=== PATIENT | male | born 1965 | race Caucasian/White ===

== ENCOUNTER 2020-07-13 10:14 | Outpatient (CLI) | payer OTHER, SELFPAY | END 2020-07-13 10:15 | disposition home or self-care (01) | LOC: ANHSURGERY 10:16 | PROVIDERS: PCP Family Medicine; Visit Provider Surgery | DX: Z01.812 Encounter for preprocedural laboratory examination (principal); K40.90 Unilateral inguinal hernia, without obstruction or gangrene, not specified as recurrent | CPT/HCPCS: 36415; 86850; 86900; 86901 ==

== ENCOUNTER 2020-07-22 01:09 | Outpatient (CLI) | payer OTHER, SELFPAY ==
[2020-07-23 14:16] LABS: SARS-CoV-2 RNA PCR Negative
== END 2020-07-22 01:10 | disposition home or self-care (01) ==
LOC: ANHCOVIDDT 01:10
PROVIDERS: PCP Family Medicine; Visit Provider Surgery
DX: Z01.818 Encounter for other preprocedural examination (principal); Z20.828 Contact with and (suspected) exposure to other viral communicable diseases
CPT/HCPCS: 87635; C9803; U0003

== ENCOUNTER 2020-07-25 00:47 | Day surgery (SDC) | payer OTHER, SELFPAY ==
[2020-07-12 15:18] VITALS: BMI 23.9
[2020-07-25] VITALS (8 sets, daily range): BP systolic 144–164; BP diastolic 78–97; PULSE 54–89; RESP 12–20; TEMP 36.5–36.8; O2SAT 94–100
--- NOTE | 2020-07-25 08:34 | P.PNAN_ITS ---
Anes - Initial Pre Proc Eval Procedure: Operation Date: 07/25/20 13:30 Proposed Procedures p Laparoscopic Left Inguinal Hernia Repair With Mesh, Davinci Assisted - Patrick Ramirez DO Date/Time: 07/25/20 08:34 Surgeon: Patrick Ramirez DO Pre Op Diagnosis: Left Inguinal Hernia Patient Data Age: 55 Gender: M Height: 1.83 m Weight: 80 kg Allergies Allergy/AdvReac Type Severity Reaction Status Date / Time azithromycin Allergy Severe irritable Verified 07/25/20 11:39 Penicillins Allergy Severe Skin Verified 07/25/20 11:39 Reaction Home Medications Medication Instructions Recorded Confirmed Type cetirizine 10 mg tablet 10 mg PO DAILY 06/13/20 07/25/20 History fluticasone propionate 50 1 spray INTRANASAL DAILY 06/13/20 07/25/20 History mcg/actuation nasal spray,suspension omeprazole 20 mg capsule,delayed 20 mg PO DAILY 06/13/20 07/25/20 History release sildenafil 100 mg tablet 100 mg PO DAILY PRN #10 tablet 07/07/20 07/12/20 Rx Patient hx anesthesia problems: none Family hx anesthesia problems: none PMFSH Past Medical History Medical History Gastro-esophageal reflux disease without esophagitis Surgical History Surgical History H/O ventral hernia repair 2011: Incarcerated ventral hernia repair with mesh, Dr. Hopper. 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 Gender identity (if verbalized by the patient): Male Spiritual care concerns: No Anes - Eval Final PreProcedure Day of Procedure 07/25/20 08:34 Patient weight: normal Heart: regular rate and rhythm Lungs: clear to auscultation and normal air movement Airway: Mallampati scale class III Neurological: alert and oriented Last oral intake: >/= 8 hours ASA classification: III Emergent: no Anesthetic plan: proceed Anesthesia type and monitoring: general ETT and standard monitoring Informed Consent: The patient's anesthetic plan and its attendant risks and benefits were discussed with the patient/family/POA. Questions were solicited and answers provided to the satisfaction of the patient/family/POA.
[2020-07-25] MEDS: ACETAMINOPHEN 500 MG TABLET 1000 MG PO (12:17)
[2020-07-25] MEDS: LACTATED RINGERS 1,000 ML 30 ML IV CONT ×3 (12:25→16:56)
[2020-07-25] MEDS: KETOROLAC 15 MG/ML VIAL (*BKC) IV PUSH (12:35)
--- NOTE | 2020-07-25 13:07 | ECG_ITS ---
Measurements Intervals [place] Rate: 66 P: 6 VA: 188 QRS: 37 QRSD: 87 T: 44 QT: 374 QTc: 392 Interpretive Statements SINUS RHYTHM BASELINE ARTIFACT- I, III NORMAL ECG Electronically Signed On 07-25-2020 13:29:21 CARE MANAGEMENT COORDINATOR by Hamlet Wylie D.O.
--- NOTE | 2020-07-25 14:32 | PM.IMHP ---
H&P: HPI History of Present Illness Date/Time: 07/25/20 14:32 Chief complaint: Left Inguinal Hernia Narrative: Jp Clinton is a 55 year old male who presents for left inguinal hernia repair. He reports no changes since last seen in office. Review of Systems Review of Systems: All systems reviewed & are unremarkable except as noted in HPI and below Constitutional: Constitutional: Denies chills, Denies fever(s), Denies headache(s) and Denies weight loss Eyes: Eyes: Denies change in vision ENT: Denies dizziness, Denies headache(s), Denies neck mass and Denies throat swelling Cardiovascular: Cardiovascular: Denies chest pain, Denies lightheadedness and Denies dyspnea Respiratory: Respiratory: Denies cough, Denies dyspnea and Denies wheezing Gastrointestinal: Gastrointestinal: Denies abdominal pain, Denies change in bowel habits, Denies nausea and Denies vomiting Genitourinary: Genitourinary: Denies hematuria and Denies dysuria Musculoskeletal: Musculoskeletal: Reports as per HPI Integumentary/Breasts: Skin/Breast: Reports as per HPI Neurologic: Denies dizziness and Denies headache(s) Allergic/Immunologic: Allergic/Immunologic: Denies throat swelling and Denies wheezing PMFSH Past Medical History Medical History Gastro-esophageal reflux disease without esophagitis Surgical History Surgical History H/O ventral hernia repair 2011: Incarcerated ventral hernia repair with mesh, Dr. Hopper. 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 Gender identity (if verbalized by the patient): Male Spiritual care concerns: No Meds Home Medications and Allergies Home Medications Medication Instructions Recorded Confirmed Type cetirizine 10 mg tablet 10 mg PO DAILY 06/13/20 07/25/20 History fluticasone propionate 50 1 spray INTRANASAL DAILY 06/13/20 07/25/20 History mcg/actuation nasal spray,suspension omeprazole 20 mg capsule,delayed 20 mg PO DAILY 06/13/20 07/25/20 History release sildenafil 100 mg tablet 100 mg PO DAILY PRN #10 tablet 07/07/20 07/12/20 Rx Allergies Allergy/AdvReac Type Severity Reaction Status Date / Time azithromycin Allergy Severe irritable Verified 07/25/20 11:39 Penicillins Allergy Severe Skin Verified 07/25/20 11:39 Reaction Vital Signs Vital Signs - 24 hr 07/25/20 13:06 Temperature 36.8 C Pulse Rate 70 Respiratory Rate 20 Blood Pressure 150/86 H Pulse Oximetry 98 Exam Const: General: no acute distress and alert Orientation/consciousness: patient oriented x3 HENMT: Head: normocephalic and atraumatic Ears: hearing grossly normal bilaterally General nose exam: Normal nares present Mouth: Yes Normal oral and palatal mucosa present Eyes: Periorbital: periorbital findings normal Sclera: sclerae normal EOM: EOMs intact bilaterally Neck: Neck: normal visual inspection, no lymphadenopathy and trachea midline Chest: Chest palpation & inspection: normal inspection of the chest Resp: Effort & Inspection: normal respiratory effort Auscultation: clear to auscultation bilaterally Cardio: Jugular venous distension: no JVD Rate: regular rate Rhythm: regular rhythm Heart sounds: S1 normal heart sound present and S2 normal heart sound present Peripheral pulses: Peripheral pulses 2+ throughout GI: Inspection: normal to inspection GI Palp: Ye
--- NOTE | 2020-07-25 14:40 | WPDHPUPDATE1 ---
History and Physical Update Update Date/Time: 07/25/20 14:40 History and Physical has been reviewed, including an updated exam of the patient. There are NO changes in the patient's condition. Risks, benefits, and alternatives have been discussed and questions answered. Patient agrees to proceed with procedure.
[2020-07-25] MEDS: ceFAZolin 2 GM/D5W 50 ML 2 GM/50 ML BAG IVPB (15:15)
--- NOTE | 2020-07-25 16:01 | SUR.OPER ---
Left Inguinal Hernia Mesh ProGrip [id number], [id number]. Exp 2023-01-29
--- NOTE | 2020-07-25 16:46 | PM.PROC ---
Procedure Note - Detailed Date of procedure: 07/25/20 Pre-op diagnosis: Left Inguinal Hernia Post-op diagnosis: same (Indirect LIH) Procedure performed: Laparoscopic left inguinal hernia repair with Progrip mesh, da Adina assisted Description of procedure: Procedure as well as risks, benefits, and alternatives were discussed with the patient. Written consent was obtained and placed in chart prior to procedure. Patient was brought back to surgical suite. He was placed supine on operating table. Time-out was done to confirm patient and procedure. He was then intubated by Anesthesia Department. His abdomen was prepped and draped in sterile fashion using chlorhexidine prep. 0.5% bupivacaine with epinephrine was infiltrated at each location for incision. A 12 millimeter transverse incision was made just superior to the umbilicus using a 15 blade scalpel. Blunt dissection was carried out down to the linea alba. A vertical incision was made at the linea alba using a 15 blade scalpel. The peritoneum was then bluntly entered. A 12 millimeter trocar was inserted and carbon dioxide insufflation was used to create a pneumoperitoneum. A camera was inserted and the abdominal cavity was inspected. The patient was placed in slight Trendelenburg position. An 8 millimeter incision was made on the right lateral abdomen and an 8 millimeter trocar was inserted under direct visualization. Another 8 millimeter incision was made in the left lateral abdomen and an 8 millimeter trocar was inserted under direct visualization. The robotic arms were brought up to the patient's bedside and secured to the ports. The camera and instruments were inserted. I then moved over to the robotic console and took control of the camera and instruments. After careful inspection of the abdominal cavity, I began scoring the peritoneum along the left lower quadrant using scissors with electrocautery. The preperitoneal plane was entered and this was carefully dissected caudally along the inferior epigastric vessels. Careful dissection with scissors with electrocautery and blunt dissection was used to continue this dissection. I dissected far enough laterally to allow for mesh placement, and also dissected medially to identify the pubic arch and Preston's ligament. The hernia sac was identified and carefully dissected posteriorly. The cord contents were also identified and the peritoneum was carefully dissected far enough posteriorly to allow for mesh placement. Once an adequate pocket was created, I then placed the mesh within the preperitoneal pocket and carefully unfolded it. The mesh was centered on the hernia defect with adequate overlap circumferentially. The inferior edge of the mesh was inspected to ensure that it was far enough away from the peritoneal edge. The mesh appeared in proper position overlying the entire myopectineal orifice. The peritoneum was then closed over the mesh using a 3-0 V-lock running absorbable suture. The robotic instruments were removed. The robotic arms were disengaged from the ports and moved away from the bedside. The patient was flattened out in bed, the ports were removed under direct visualization, and the pneumoperitoneum was released. The fascia of the umbilical incision was approximated using an 0 Vicryl [id number] suture. The skin of the incisions was approximated using 4-0 Monocryl subcuticular suture, and Exofin glue was applied on top. The patient was awakened from anesthesia, extubated, and transferred to recovery. Implants: Progrip Mesh 10cm x 15cm Anesthesia: GETA and local (0.5% bupivicaine with epi) Surgeon: Patrick Ramirez DO Estimated blood loss (mL): 5 Drains: No Packing: No Pathology: none sent Complications: No immediate complications Condition: stable Disposition: same day Findings: This is a 55-year-old man who presents with left groin pain and a bulge that he noticed about 1 month ago. He was found to have a reducible
[2020-07-25] MEDS: fentaNYL CITRATE INJ (*CRX) 100 MCG/2 ML VIAL 25 MCG IV PUSH ×8 (16:54→17:15)
--- NOTE | 2020-07-25 18:40 | SUR.PHASEII ---
1835 - dr. gauthier in room talking with pt
== END 2020-07-25 18:40 | disposition home or self-care (01) ==
PROVIDERS: PCP Family Medicine; Visit Provider Surgery
PROC: 8E0Y4CZ Robotic Assisted Procedure of Lower Extremity, Percutaneous Endoscopic Approach (ICD-10-PCS; CPT 49650; principal; 2020-07-25 13:30)
DX: K40.90 Unilateral inguinal hernia, without obstruction or gangrene, not specified as recurrent (principal); K21.9 Gastro-esophageal reflux disease without esophagitis; F17.290 Nicotine dependence, other tobacco product, uncomplicated
CPT/HCPCS: 49650; S2900; 93005; A9270; C1781; J0690; J1100; J1885; J2250; J2405; J2704; J2710; J3010; J7030; J7120

== ENCOUNTER 2021-04-18 09:30 | Outpatient (RCR) | payer OTHER, SELFPAY | END 2021-04-18 15:18 | disposition home or self-care (01) | PROVIDERS: PCP Family Medicine; Visit Provider Internal Medicine Cardiovascular Disease | DX: I25.2 Old myocardial infarction (principal) | CPT/HCPCS: 93798 ==

== ENCOUNTER 2022-11-21 01:02 | Day surgery (SDC) | payer OTHER, SELFPAY ==
[2022-11-07 13:42] VITALS: BMI 25.8
--- NOTE | 2022-11-21 07:22 | WPDANESEPPF ---
Anes - Initial Pre Proc Eval Procedure: Operation Date: 11/21/22 08:30 Proposed Procedures p Screening Colonoscopy - Patrick Ramirez DO Date/Time: 11/21/22 07:22 Surgeon: Patrick Ramirez DO Pre Op Diagnosis: hx colon polyps Patient Data Age: 57 Gender: M Height: 1.83 m Weight: 86.3 kg Allergies Allergy/AdvReac Type Severity Reaction Status Date / Time azithromycin Allergy Severe irritable Verified 11/21/22 07:41 Penicillins Allergy Severe Skin Verified 11/21/22 07:41 Reaction Home Medications Medication Instructions Recorded Confirmed Type cetirizine 10 mg tablet (Zyrtec) 10 mg PO DAILY 06/13/20 11/21/22 History fluticasone propionate 50 1 spray intranasal DAILY 06/13/20 11/21/22 History mcg/actuation nasal spray,suspension omeprazole 20 mg capsule,delayed 20 mg PO DAILY 06/13/20 11/21/22 History release ascorbic acid (vitamin C) 500 mg 500 mg PO DAILY 01/11/21 11/21/22 History capsule aspirin 81 mg tablet,delayed 81 mg PO DAILY 01/11/21 11/21/22 History release atorvastatin 80 mg tablet 80 mg PO DAILY 01/11/21 11/21/22 History carvedilol 6.25 mg tablet (Coreg) 6.25 mg PO Q12H 01/11/21 11/21/22 History multivitamin 1 tablet PO DAILY 01/11/21 11/21/22 History sacubitril 24 mg-valsartan 26 mg 1 tablet PO BID 01/11/21 11/21/22 History tablet (Entresto) vitamin E (dl, acetate) 180 mg 400 unit PO DAILY 01/11/21 11/21/22 History (400 unit) capsule clopidogrel 75 mg tablet (Plavix) 75 mg PO DAILY #90 tabs 10/08/21 11/21/22 Rx bempedoic acid 180 mg-ezetimibe 10 1 tablet PO DAILY 11/08/22 11/21/22 History mg tablet (Nexlizet) Patient hx anesthesia problems: none Family hx anesthesia problems: none Results Review: All pre-operative results and documents have been reviewed as part of the pre-operative evaluation. [facility] Past Medical History Medical History (Updated 11/21/22 @ 07:29 by Kee Lemus DO) Cardiac arrest Cigar smoker Gastro-esophageal reflux disease without esophagitis History of heart attack Mixed hyperlipidemia On intra-aortic balloon pump assist Surgical History Surgical History (Updated 11/21/22 @ 07:29 by Kee Lemus DO) H/O ventral hernia repair 2012: Incarcerated ventral hernia repair with mesh, Dr. Hopper. History of colonoscopy 2016 History of inguinal hernia repair 07/25/20 Laparoscopic left inguinal hernia repair with Progrip mesh, da Adina assisted Post PTCA x1 stent Family History Family History Grandparent Family history of lung cancer Social History Social History Smoking packs per day: 1 Smoking cigarettes per day: 20.0 Years smoked: 30 Smoking pack-years: 30.00 Smoking status: Former smoker Tobacco type: cigarettes Alcohol intake: current Drinks per week: 20 Alcohol use details: 2-6 per day Substance use: never Substance use type: does not use Lack of Transportation: No Lack of Food: Never True Current Housing: I Have Housing Concerned About Future Housing: No Difficulty Paying Gas/Electric Bills: No Difficulty Paying for Meds: No Currently Unemployed: No Education: High School Diploma/GED Difficulty w/ Childcare or Family Care: No Living arrangements: with family 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
[2022-11-21 07:45] VITALS: BP 112/74; PULSE 71; RESP 21; TEMP 36.2; O2SAT 100
[2022-11-21] MEDS: LACTATED RINGERS 1,000 ML 150 ML IV CONT (07:52)
--- NOTE | 2022-11-21 08:18 | PM.IMHP ---
H&P: HPI History of Present Illness Date/Time: 11/21/22 08:18 Chief Complaint: history of colon polyps Narrative: this is a 57-year-old man who presents for colonoscopy. His last colonoscopy was 5 years ago and polyps were removed at that time. He denies any family history of colon cancer. He denies any hematochezia or melena. He is on Plavix but stopped this 4 days ago. Review of Systems Review of Systems: All systems reviewed & are unremarkable except as noted in HPI and below Constitutional: Constitutional: Denies chills, Denies fever(s), Denies headache(s) and Denies weight loss Eyes: Eyes: Denies change in vision ENT: Denies dizziness, Denies headache(s), Denies neck mass and Denies throat swelling Cardiovascular: Cardiovascular: Denies chest pain, Denies lightheadedness and Denies dyspnea Respiratory: Respiratory: Denies cough, Denies dyspnea and Denies wheezing Gastrointestinal: Gastrointestinal: Denies abdominal pain, Denies change in bowel habits, Denies nausea and Denies vomiting Genitourinary: Genitourinary: Denies hematuria and Denies dysuria Musculoskeletal: Musculoskeletal: Reports as per HPI Integumentary/Breasts: Skin/Breast: Reports as per HPI Neurologic: Denies dizziness and Denies headache(s) Allergic/Immunologic: Allergic/Immunologic: Denies throat swelling and Denies wheezing [facility] Past Medical History Medical History (Updated 11/21/22 @ 08:19 by Patrick Ramirez DO) Cardiac arrest Cigar smoker Gastro-esophageal reflux disease without esophagitis History of heart attack Mixed hyperlipidemia On intra-aortic balloon pump assist Surgical History Surgical History (Updated 11/21/22 @ 07:29 by Kee Lemus DO) H/O ventral hernia repair 2012: Incarcerated ventral hernia repair with mesh, Dr. Hopper. History of colonoscopy 2016 History of inguinal hernia repair 07/25/20 Laparoscopic left inguinal hernia repair with Progrip mesh, da Adina assisted Post PTCA x1 stent Family History Family History Grandparent Family history of lung cancer Social History Social History Smoking packs per day: 1 Smoking cigarettes per day: 20.0 Years smoked: 30 Smoking pack-years: 30.00 Smoking status: Former smoker Tobacco type: cigarettes Alcohol intake: current Drinks per week: 20 Alcohol use details: 2-6 per day Substance use: never Substance use type: does not use Lack of Transportation: No Lack of Food: Never True Current Housing: I Have Housing Concerned About Future Housing: No Difficulty Paying Gas/Electric Bills: No Difficulty Paying for Meds: No Currently Unemployed: No Education: High School Diploma/GED Difficulty w/ Childcare or Family Care: No Living arrangements: with family Occupation/Education: retired 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[employer] Gender identity (if verbalized by the patient): Male Spiritual care concerns: No Meds Home Medications and Allergies Home Medications Medication Instructions Recorded Confirmed Type cetirizine 10 mg tablet (Zyrtec) 10 mg PO DAILY 06/13/20 11/21/22 History fluticasone propionate 50 1 spray intranasal DAILY 06/13/20 11/21/22 History mcg/actuation nasal spray,suspension omeprazole 20 mg capsule,delayed 20 mg PO DAILY 06/13/20 11/21/22 History release ascorbic acid (vitamin C) 500 mg 500 mg PO DAILY 01/11/21 11/21/22 History capsule aspirin 81 mg tablet,delayed 81 mg PO DAILY 01/11/21 11/21/22 History release atorvastatin 80 mg tablet 80 mg PO DAILY 01/11/21 11/21/22 History carvedilol 6.25 mg tablet (Coreg) 6.25 mg PO Q12H 01/11/21 11/21/22 History multivitamin 1 tablet PO DAILY 01/11/21 11/21/22 History sacubitril 24 mg-valsartan 26 mg 1 tablet PO BID 01/11/21 11/21/22 History tablet (Entresto) vitamin E (dl, acetate
[2022-11-21 09:16] VITALS: BP 105/63; PULSE 74; RESP 23; O2SAT 100
[2022-11-21 09:26] VITALS: BP 102/73; PULSE 63; RESP 16; O2SAT 100
[2022-11-21 09:36] VITALS: BP 109/74; PULSE 62; RESP 12; O2SAT 100
== END 2022-11-21 09:43 | disposition home or self-care (01) ==
PROVIDERS: PCP Family Medicine; Visit Provider Surgery
PROC: 0DJD8ZZ Inspection of Lower Intestinal Tract, Via Natural or Artificial Opening Endoscopic (ICD-10-PCS; CPT 45378; principal; 2022-11-21 08:30)
DX: Z12.11 Encounter for screening for malignant neoplasm of colon (principal); D12.3 Benign neoplasm of transverse colon; K92.2 Gastrointestinal hemorrhage, unspecified; K57.30 Diverticulosis of large intestine without perforation or abscess without bleeding; K64.8 Other hemorrhoids; K21.9 Gastro-esophageal reflux disease without esophagitis; I25.2 Old myocardial infarction; E78.2 Mixed hyperlipidemia; Z95.5 Presence of coronary angioplasty implant and graft; Z87.891 Personal history of nicotine dependence; Z79.02 Long term (current) use of antithrombotics/antiplatelets; Z79.82 Long term (current) use of aspirin
CPT/HCPCS: 45385; 88305; J2001; J2704; J7120